=== PATIENT | female | born 1985 | race Caucasian/White ===

== ENCOUNTER → 2018-02-24 14:36 | Outpatient (CLI) | payer OTHER, SELFPAY ==
[2018-03-01 12:08] LABS: HPV Reflexed? NOT INDICATED
== END ==
PROVIDERS: Visit Provider Obstetrics & Gynecology
DX: Z12.4 Encounter for screening for malignant neoplasm of cervix (principal)
CPT/HCPCS: 88175; G0145

== ENCOUNTER → 2020-04-16 | Outpatient (CLI) | payer OTHER, SELFPAY ==
[2020-04-22 15:56] LABS: HPV Reflexed? NOT INDICATED
== END | disposition home or self-care (01) ==
LOC: LABSPEC 14:36
PROVIDERS: Visit Provider Obstetrics & Gynecology
DX: Z12.4 Encounter for screening for malignant neoplasm of cervix (principal)
CPT/HCPCS: 88175; G0145

== ENCOUNTER 2022-02-16 08:59 | Outpatient (CLI) | payer OTHER, SELFPAY ==
--- NOTE | 2022-02-16 09:08 | BI_ITS ---
MAMMOGRAPHY - BILATERAL DIAGNOSTIC REASON FOR EXAM: Female, 36 years old. rt lump PERTINENT HISTORY: Non-contributory. TECHNIQUE: Digital examination. Mediolateral oblique (MLO) and craniocaudad (CC) views of both breasts were obtained. CAD: CAD was performed on this study. COMPARISON: None. FINDINGS: Breast Composition: The breasts are extremely dense, which lowers the sensitivity of mammography. There are no dominant masses or suspicious calcifications. No other significant abnormalities are identified. BI/DIAG MAMM W/CAD, BILAT IMPRESSION: Stable bilateral diagnostic mammogram. Ultrasound of the palpable abnormality in the right breast will be obtained. ASSESSMENT CATEGORY: BIRADS Category 0: Incomplete. Need additional imaging evaluation. A letter regarding these results will be sent to the patient by the facility within 30 days. FOLLOW UP RECOMMENDATION: Ultrasound Recommended. (I) Approximately 10% of breast cancers are not detected by mammography. A normal mammogram should not delay biopsy of a clinically suspicious abnormality. Electronically Signed: Elder Díaz MD at 10:56 EDT ,
--- NOTE | 2022-02-16 10:10 | US_ITS ---
STUDY: ULTRASOUND BREAST - RIGHT REASON FOR EXAM: Female, 36 years old. Palpable mass TECHNIQUE: Axial and longitudinal images of the RIGHT breast were performed with a high resolution ultrasound transducer. # OF IMAGES: 27 COMPARISON: Diagnostic mammogram earlier today FINDINGS: RIGHT Breast: Heterogeneous background echotexture. Multiple longitudinal and transverse ultrasound images of the upper outer quadrant of the right breast fail to demonstrate a discrete solid or cystic mass. Within the axilla detail there is a normal-appearing 1 cm lymph node.: US/Breast Limited Unilateral IMPRESSION: Normal diagnostic mammogram right breast ultrasound. However, biopsy of any palpable abnormality should be performed if clinically indicated. ASSESSMENT CATEGORY: BIRADS Category 1: Negative. A letter regarding these results will be sent to the patient by the facility within 30 days. Electronically Signed: Elder Díaz MD at 11:12 EDT ,
== END 2022-02-16 23:59 | disposition home or self-care (01) ==
PROVIDERS: PCP Orthopaedic Surgery; Referring Provider Obstetrics & Gynecology; Visit Provider Obstetrics & Gynecology
DX: N60.11 Diffuse cystic mastopathy of right breast (principal); R92.2 Inconclusive mammogram
CPT/HCPCS: 76642; 77062; 77066; G0279

== ENCOUNTER → 2022-04-28 | Outpatient (CLI) | payer OTHER, SELFPAY ==
[2022-05-02 15:18] LABS: HPV Reflexed? NOT INDICATED
== END | disposition home or self-care (01) ==
LOC: LABSPEC 10:05
PROVIDERS: PCP Orthopaedic Surgery; Visit Provider Obstetrics & Gynecology
DX: Z12.4 Encounter for screening for malignant neoplasm of cervix (principal)
CPT/HCPCS: 88175; G0145

== ENCOUNTER → 2023-05-12 | Outpatient (CLI) | payer OTHER, SELFPAY ==
[2023-05-12 10:11] LABS: Absolute Lymphocyte Count 1.48 X10^3/uL (0.83-4.51); Absolute Neutrophil Count 2.9 X10^3/uL (2.0-7.7); Basophil# 0.04 X10^3/uL; Basophil% 0.8 % (0-1); Eosinophil# 0.08 X10^3/uL; Eosinophils% 1.7 % (0-5); Hematocrit 39.1 % (37-47); Hemoglobin 12.7 g/dL (12.0-15.0); Lymphocyte # 1.48 X10^3/ul (0.83-4.51); Lymphocyte % 30.8 % (19-41); Mean Corp Hgb Conc 32.5 g/dL (32-36); Mean Corpuscular Volume 92.4 fL (81-99); Mean Platelet Vol. 10.4 fl (6.2-12.0); Monocyte# 0.28 X10^3/uL; Monocyte% 5.8 % (0-10); NRBC Flagged by Analyzer 0 % (0-5); Neutrophil # 2.92 X10^3/uL (2.7-7.7); Neutrophil % 60.7 % (47-70); Platelet Count 193 K/mm3 (150-450); RBC Distribution Width CV 12.7 % (11.6-14.6); RBC Distribution Width SD 43.5 fl (35.1-43.9); Red Blood Count 4.23 M/mm3 (4.2-5.4); White Blood Count 4.8 K/mm3 (4.4-11.0)
== END | disposition home or self-care (01) ==
LOC: WOBLAB 09:50
PROVIDERS: PCP Orthopaedic Surgery; Visit Provider Nurse Practitioner Women's Health
DX: N93.9 Abnormal uterine and vaginal bleeding, unspecified (principal)
CPT/HCPCS: 36415; 82670; 83001; 83002; 84146; 84439; 84443; 85025

== ENCOUNTER → 2023-05-16 | Outpatient (CLI) | payer OTHER, SELFPAY ==
[2023-05-16 09:03] LABS: Estradiol 205.3 pg/mL; Follicle Stimulating Hormone 8.8 mIU/mL; Luteinizing Hormone 55.5 mIU/mL; Prolactin 19.9 ng/mL; T4 Free Direct 0.88 ng/dL (0.76-1.46); Thyroid Stim Hormone (TSH) 2.59 uIU/mL (0.358-3.74)
== END | disposition home or self-care (01) ==
LOC: WOBLAB 08:30
PROVIDERS: PCP Orthopaedic Surgery; Visit Provider Nurse Practitioner Women's Health
DX: N93.9 Abnormal uterine and vaginal bleeding, unspecified (principal)
CPT/HCPCS: 82670; 83001; 83002; 84146; 84439; 84443

== ENCOUNTER → 2025-07-15 | Outpatient (CLI) | payer OTHER, SELFPAY | END | disposition home or self-care (01) | LOC: LABSPEC 11:13 | PROVIDERS: PCP Orthopaedic Surgery; Referring Provider Nurse Practitioner Family; Visit Provider Nurse Practitioner Family | DX: Z12.4 Encounter for screening for malignant neoplasm of cervix (principal) | CPT/HCPCS: 88175; G0145 ==

== ENCOUNTER → 2025-08-15 | Outpatient (CLI) | payer OTHER, SELFPAY ==
--- NOTE | 2025-08-15 12:00 | BI_ITS ---
EXAM: SCRN MAMM (CAD)W/PEÑA BILAT DATE: 08/15/2025 CLINICAL HISTORY: F, Age 40 y/o , SCREENING TECHNIQUE: Procedure Code: [id number] Modality: MG Procedure: SCRN MAMM (CAD)W/PEÑA BILAT COMPARISON: Prior exam(s) were compared FINDINGS: TISSUE DENSITY: The breasts are extremely dense, which lowers the sensitivity of mammography. Bilateral Breast Mammographic Findings: No suspicious masses, calcifications or other abnormalities are identified. BI/SCRN MAMM (CAD)W/PEÑA BILAT IMPRESSION: No mammographic evidence of malignancy in either breast. OVERALL FINAL ASSESSMENT BI-RADS 1: NEGATIVE. RECOMMENDATION: Routine annual follow-up in 1 Year Additional Recommendation none A letter with findings and recommendations will be mailed to the patient. Reading Location: [id number]
--- NOTE | 2025-08-15 12:00 | BI_ITS ---
EXAM: SCRN MAMM (CAD)W/PEÑA BILAT DATE: 08/15/2025 CLINICAL HISTORY: F, Age 40 y/o , SCREENING TECHNIQUE: Procedure Code: [id number] Modality: MG Procedure: SCRN MAMM (CAD)W/PEÑA BILAT COMPARISON: Prior exam(s) were compared FINDINGS: TISSUE DENSITY: The breasts are extremely dense, which lowers the sensitivity of mammography. Bilateral Breast Mammographic Findings: No suspicious masses, calcifications or other abnormalities are identified. BI/SCRN MAMM (CAD)W/PEÑA BILAT IMPRESSION: No mammographic evidence of malignancy in either breast. OVERALL FINAL ASSESSMENT BI-RADS 1: NEGATIVE. RECOMMENDATION: Routine annual follow-up in 1 Year Additional Recommendation none A letter with findings and recommendations will be mailed to the patient. Reading Location: [id number]
--- OUTSIDE RECORDS SUMMARY | 2025-08-15 12:44 | XMS RPT_ITS | CCD ---
Author Organization [facility] Care Team Providers Care Administrative Processor Name Role Phone Vinod QUINTEROS, Tahir Sotelo Unavailable [phone] Spenser QUINTEROS, Dr. Fermin Perez Primary Care Provider Spenser QUINTEROS, Dr. Fermin Perez Referring Provider [phone] Anastasia HOLMAN-CLarissa Attending Provider Spenser QUINTEROS, Dr. Fermin Perez Primary Care Physician Anastasia HOLMAN-Larissa Peter Attending Physician Anastasia HOLMAN-Larissa Peter Referring Provider Larissa Oconnor Attending Unavailable Larissa Oconnor Referring Unavailable Fermin Dueñas Primary Care Unavailable Fermin Dueñas Primary Care Unavailable Fermin Dueñas Referring Unavailable Larissa Oconnor Attending Unavailable Allergies Allergy Classification Reported Allergen(s) Allergy Type Date of Onset Reaction(s) Facility (1 source) [facility]; Translations: [ANIMALS] allergy to substance 9 [facility] Work Phone: (4 sources) Latex; Translations: [LATEX] allergy to substance 9 [facility] Work Phone: (1 source) Penicillin Drug Allergy 9 [facility] Work Phone: (2 sources) Penicillins Allergy to substance 5 [facility] (1 source) Penicillins Drug allergy (disorder) 5 [facility] Medications Current Medications Medication Drug Class(es) Dates Sig (Normalized) Sig (Original) cholecalciferol 0.125 mg oral capsule (2 sources) Vitamin D Start: 04-30-2025 take 1 capsule by mouth once daily ferrous sulfate 325 mg oral tablet (2 sources) Start: 04-30-2025 take 1 tablet by mouth once daily Magnesium (2 sources) Start: 04-30-2025 take 1 tablet by mouth once daily Start: 04-30-2025 take 1 tablet by irving th once daily Magnesium 250 mg tablet Active 250 mg PO daily April 30, 2025 12:00am Multivitamin tablet (2 sources) Start: 04-30-2025 Start: 04-30-2025 Multivitamin t ablet Active 1 {tbl} PO EVERY MORNING April 30, 2025 12:00am zinc gluconate 50 mg oral ta blet (2 sources) Start: 04-30-2025 take 1 tablet by irving th once daily Problems Active Problems Problem Classification Problem Date Documented Da te Episodic/Chronic Melanomas of skin (1 source) Malignant melanoma of skin of back; Translations: [Malignant melanoma of other part of trunk] Onset: 08-20-2019 08-20-2019 Chronic Other screening for suspected conditions (not mental disorders or infectious disease) (2 sources) Encounter for screening for malignant neoplasm of cervix; Translations: [Encounter for other screening for malignant neoplasm of breast] Onset: 07-15-2025 Episodic Past or Other Problems Problem Classification Problem Date Documented Da te Episodic/Chronic Unclassified (1 source) Problem Results Test Name Value Interpretation Reference Range Facility PAP IG w/Reflex HR HPV Aptim aon 07-18-2025 ADEQ Comment Normal . [facility] Comment on above: Order Comment: Speci men Comment: [id number] Specimen Comment: No. of containers..01 ThinPrep Vial Result Comment: Sati sfactory for evaluation. Endocervical and/or squamous metaplastic cells (endocervical component) are present. Performed By: #### L 7400.0357 #### [facility] [address] [place], [address] COMM . Normal . [facility] Comment on above: Order Comment: Speci men Comment: [id number] Specimen Comment: No. of containers..01 ThinPrep Vial Performed By: #### L 7400.0357 #### [facility] [address] [place], [address] COMMENT Comment Normal . [facility] Comment on above: Order Comment: Speci men Comment: [id number] Specimen Comment: No. of containers..01 ThinPrep Vial Result Comment: This liquid based ThinPrep(R) pap test was screened with the use of an image guided system. Performed By: #### L 7400.0357 #### [facility] [address] [place], [address] DIAG Comment Normal . [facility] Comment on above: Order Comment: Speci men Comment: [id number] Specimen Comment: No. of containers..01 ThinPrep Vial Result Comment: NEGA TIVE FOR INTRAEPITHELIAL LESION OR MALIGNANCY. Performed By: #### L 7400.0357 #### [facility] [address] [place], [address] HPV RFLX Comment Normal . [facility] Comment on above: Order Comment: Speci men Comment: [id number] Specimen Comment: No. of containers..01 ThinPrep Vial Result Comment: The HPV DNA reflex criteria were not met with this specimen result therefore, no HPV testing was performed. Performed at: [address] [id number] Outreach Team Member: Samantha James MD, Phone: [phone] Performed By: #### L 7400.0357 #### [facility] [address] [place], [address] PAPSMR Comment Normal . [facility] Comment on above: Order Comment: Speci men Comment: [id number] Specimen Comment: No. of containers..01 ThinPrep Vial Result Comment: The Pap smear is a screening test designed to aid in the detection of premalignant and malignant conditions of the uterine cervix. It is not a diagnostic procedure and should not be used as the sole means of detecting cervical cancer. Both false-positive and false-negative reports do occur. Performed By: #### L 7400.0357 #### [facility] [address] [place], [place], [address] PERFORM Comment Normal . [facility] Comment on above: Order Comment: Speci men Comment: [id number] Specimen Comment: No. of containers..01 ThinPrep Vial Result Comment: Sarita Frye Project Product Manager (ASCP) Performed By: #### L 7400.0357 #### [facility] [address] [place], [address] Cervical or vagninal specime n microscopic examination by cytology stain (reported asOrdered By: Larissa Oconnor on 07-15-2025 Cytology report Cyto stain Doc (Cvx/Vag) Comment . [facility] Comment on above: The Pap smear is a s creening test designed to aid in thedetection of premalignant and malignant conditions of theuterine cervix. It is not a diagnostic procedure andshould not be used as the sole means of detecting cervicalcancer. Both false-positive and false-negative reports dooccur. Laboratory - CytologyOrdered By: Larissa Oconnor on 07-15-2025 Project Product Manager Cyto stain Nom (Cvx/Vag) [ID] Comment . [facility] Comment on above: Les calvert Project Product Manager (ASCP) Laboratory - Miscellaneous t estsOrdered By: Lraissa Oconnor on 07-15-2025 Service comment (Unsp spec) [Interp] . . [facility] No Panel InformationOrdered By: Larissa Oconnor on 07-15-2025 Pap Smear Specimen Adequacy Comment . [facility] Comment on above: Satisfactory for richard luation. Endocervical and/or squamous metaplasticcells (endocervical component) are present. Developer [employer] Office Visit Reporton 07-15-2025 Developer [employer] Office Visit Report [facility]'[address], [address] [place] [address] OFFICE VISIT Date of Service: 07/15/25 MR#: [id number] Acct: [id number] Name: KAYLEY WESTON Rep #: [id number] : 1985 Provider: SAQIB Ramirez Age/Sex: 40/F Location: [facility] Status: Signed Intake Vital Signs 07/15/25 08:19 Height 5 ft 4 in Weight: 144 lb BMI 24.7 BP 105/69 Intake Visit Reasons: Annual (ADON) Area Field Person Required: No Is patient in pain?: No Allergies Penicillins Allergy (Intermediate, Verified 07/15/25 08:20) Rash latex Allergy (Mild, Verified 07/15/25 08:20) Rash Medications ???Medication ???Instructions ???Recorded ???Confirmed ???Type cholecalciferol (vitamin D3) 125 125 mcg PO QDAY 04/30/25 07/15/25 History mcg (5,000 unit) capsule ferrous sulfate 325 mg (65 mg 325 mg PO QDAY 04/30/25 07/15/25 H istory iron) tablet (Feosol) magnesium 250 mg tablet 250 mg PO QDAY 04/30/25 07/15/25 H istory multivitamin 1 tab PO QAM 04/30/25 07/15/25 His tory zinc gluconate 50 mg tablet 50 mg PO QDAY 04/30/25 07/15/25 Hi story Is last menstrual period known: Yes Last Menstrual Period: 06/22/25 Post menopausal: No Patient : No : No Do you think of yourself as: straight/heterosexual Current gender identity: female Control Method: tubal PFSH Medical History (Updated 04/30/25 @ 13:28 by Geri Carranza) Melanoma Surgical History (Updated 07/15/25 @ 08:31 by SAQIB Modi) Tubal ligation status H/O lymph node biopsy H/O melanoma excision H/O section Family History Grandfather Heart disease Grandfather CVA (cerebral vascular accident) Father Lung cancer Brother Alcoholism Mental disorder Social History (Updated 04/30/25 @ 13:30 by Geri Carranza) adopted: No household members: family housing: house number of children: 2 current occupational status: unemployed pets and animals: No history of recent travel: Yes ([place]) out of state: Yes out of country: No sexually active: Yes Smoking Status: Never smoker alcohol intake: never substance use type: does not use well-balanced diet: daily or most days caffeine: No eating out: 1-3 times/week during the past year weight has: remained stable what type of physical activity do you participate in: walking and running frequency: daily arlen/faith: Shinto seatbelt use: always do you feel safe at home: Yes additional social history: - Justin History 2 Elective abortions Hx Para 2 Spontaneous abortions Hx # Term Pregnancies Ectopic pregnancies Hx # Pregnancies Multiple births # of living children 2 Past Pregnancies Del. Date Name GA/Weeks Outcome Route Bth Weight Gen Labor Lgth Anesthesia Del Locatn Provider FOB Unknown Jung 39 live - full term [facility] Unknown Richard 38 live - full term [place] [facility] HPI Encounter for routine gynecological examination Details: KAYLEY WESTON is a 40 year old who presents for annual exam. She reports no issues or concerns today. She is here to establish care. Last PAP: 2021; normal; no HPV ran History of abnormal PAP: none Last mammogram: 2021; benign lymph node. History of abnormal mammogram: none Colon cancer screening: none Other preventative health care screenings: Dr. Fermin Dueñas Female Reproductive History Last Menstrual Period: 06/22/25 Cycle Length: 21-35 Bleeding Duration: 5 Questions: metrorrhagia: No, sexually active: Yes (tubal), dyspareunia: No and PCB: No ROS Const Constitutional: Denies chills, fatigue, fever(s), headache(s) or weight loss Eyes Eyes: Denies change in vision ENT ENT: Denies dizziness Cardio Card: Denies chest pain at rest or palpitations Resp Resp: Denies cough or dyspnea GI GI: Denies abdominal pain, constipation or nausea : Denies difficulty voiding, dysuria, hematuria, nipple discharge, pelvic pain, prolapse symptoms, urinary incontinence, vaginal discharge, vaginal dryness, vaginal odor or vaginal pruritus Skin Skin/Breast: Denies alopecia, rash, breast mass, breast pain, breast skin changes or nipple discharge Neuro Neuro: Denies dizziness Psych Psych: Denies anxiety or depression Endo Endo: Denies cold intolerance, excessive sweating or heat intolerance Exam Const General: cooperative, healthy appearing, comfortable, no acute distress, well groomed and well hydrated Nutritional Appearance: well nourished Orientation: alert, awake and oriented x3 HENMT Head: normal to inspection and normocephalic Ears: hearing grossly normal bilaterally and external ears normal Nose: external nose normal (more content not included)... Normal [facility] - Chemistry and C hemistry - challengeOrdered By: Poppy Barragan on 05-16-2023 Free T4 [Mass/Vol] 0.88 ng/dL 0.76-1.46 [facility] No Panel InformationOrdered By: Poppy Barragan on 05-16-2023 Follicle Stimulating Hormone 8.8 mIU/mL [facility] Comment on above: NORMAL REFERENCE RAN GES FEMALE FOLLICULAR 2.3 - 12.6 mIU/mL MID-CYCLE PEAK 5.2 - 17.5 mIU/mL LUTEAL 1.7 - 12.9 mIU/mL POST-MENOPAUSAL ON MHT 5.9 - 72.8 mIU/mL NOT ON MHT 12.7 - 132.2 mlU/mL MALE 0.7 - 10.8 mIU/mL Luteinizing Hormone 55.5 mIU/mL [facility] Comment on above: NORMAL REFERENCE RAN GES FEMALE FOLLICULAR 1.9 - 26.2 mIU/mL MID-CYCLE PEAK 22.8 - 76.1 mIU/mL LUTEAL 0.6 - 16.6 mIU/mL POST-MENOPAUSAL ON MHT 1.1 - 52.4 mIU/mL NOT ON MHT 8.6 - 61.8 mIU/mL MALE 1.2 - 10.6 mIU/mL Thyroid Stimulating Hormone (TSH) 2.59 uIU/mL 0.358-3.74 [facility] Serum or plasma estradiol (E 2) measurement (mass/volume)Ordered By: Poppy Barragan on 05-16-2023 E2 [Mass/Vol] 205.3 pg/mL [facility] Comment on above: NORMAL REFERENCE RAN GES FEMALE FOLLICULAR 21.4 - 164.8 pg/mL MID-CYCLE PEAK 49.9 - 367.2 pg/mL LUTEAL 40.2 - 259.0 pg/mL POST-MENOPAUSAL ON MHT <11.0 - 462.1 pg/mL NOT ON MHT <11.0 - 58.3 pg/mL MALE <11.0 - 52.5 pg/mL NOTE:[employer] HAS CONFIRMED THE DRUG FULVETRANT (FASLODEX) MAY CAUSE FALSELY ELEVATED ESTRADIOL RESULTS WHEN USING THIS TEST METHOD. IF PATIENT IS TAKING FULVESTRANT AN ALTERNATIVE METHOD SHOULD BE USED TO DETERMINE ESTRADIOL CONCENTRATION. Serum or plasma prolactin me asurement (mass/volume)Ordered By: Poppy Barragan on 05-16-2023 Prolactin [Mass/Vol] 19.9 ng/mL [facility] Comment on above: NORMAL REFERENCE RAN GES FEMALE NON- 2.2 - 30.3 ng/mL 8.1 - 347.6 ng/mL POST-MENOPAUSAL 0.7 - 31.5 ng/mL MALE 2.5 - 17.4 ng/mL Absolute lymphocyte countOrd ered By: Poppy Barragan on 05-12-2023 Lymphocytes Auto (Unsp spec) [#/Vol] 1.48 10*3/uL 0.83-4.51 [facility] Basophil percentageOrdered B y: Poppy Barragan on 05-12-2023 Basophils/100 WBC (Bld) 0.8 % 0-1 [facility] Eosinophils/100 WBC (Bld) 1.7 % 0-5 [facility] Neutrophils (Bld) [#/Vol] 2.9 10*3/uL 2.0-7.7 [facility] Neutrophils/100 WBC (Bld) 60.7 % 47-70 [facility] WBC (Bld) [#/Vol] 4.8 10*3/uL 4.4-11.0 [facility] Blood erythrocytes count (nu mber/volume)Ordered By: Poppy Barragan on 05-12-2023 RBC (Bld) [#/Vol] 4.23 10*6/uL 4.2-5.4 [facility] Blood hemoglobin measurement (mass/volume)Ordered By: Poppy Barragan on 05-12-2023 Hemoglobin (Bld) [Mass/Vol] 12.7 g/dL 12.0-15.0 [facility] Blood lymphocytes/100 leukoc ytesOrdered By: Poppy Barragan on 05-12-2023 Lymphocytes/100 WBC (Bld) 30.8 % 19-41 [facility] Blood monocytes/100 leukocyt esOrdered By: Poppy Barragan on 05-12-2023 Monocytes/100 WBC (Bld) 5.8 % 0-10 [facility] Blood platelet mean volumeOr dered By: Poppy Barragan on 05-12-2023 Platelet mean volume (Bld) [Entitic vol] 10.4 fL 6.2-12.0 [facility] Determination of erythrocyte mean corpuscular volume (MCV)Ordered By: Poppy Barragan on 05-12-2023 MCV (RBC) [Entitic vol] 92.4 fL 81-99 [facility] Hematocrit Auto (Bld) [Volum e fraction]Ordered By: Poppy Barragan on 05-12-2023 Hematocrit (Bld) [Volume fraction] 39.1 % 37-47 [facility] - Hematology and Cell countsOrdered By: Poppy Barragan on 05-12-2023 Erythrocyte distribution width (RBC) [Entitic vol] 43.5 fL 35.1-43.9 [facility] Erythrocyte distribution width (RBC) [Ratio] 12.7 % 11.6-14.6 [facility] Immature granulocytes/100 WBC (Bld) 0.200 % 0.0-0.9 [facility] Comment on above: IG% - Immature Granu locytes (promyelocytes, myelocytes and metamyelocytes) > 1% indicates that a LEFT SHIFT is Present. MCH (RBC) [Entitic mass] 30.0 pg 27.0-32.0 [facility] Nucleated RBC/100 WBC (Bld) [Ratio] 0 % 0-5 [facility] MCHC Auto (RBC) [Mass/Vol]Or dered By: Poppy Barragan on 05-12-2023 MCHC (RBC) [Mass/Vol] 32.5 g/dL 32-36 [facility] Platelets bldOrdered By: Teresa Barragan on 05-12-2023 Platelets (Bld) [#/Vol] 193 10*3/uL 150-450 [facility] [place] LYMPHOSCINTIGRAPHYon 11-0 Lymphocytes (Bld) [#/Vol] ORIGINAL Lymphoscintigraphy, melanoma CLINICAL STATEMENT: MELANOMA LEFT UPPER BACK The procedure was explained to the patient. The risks of the procedure were discussed with the patient. The patient verbalized understanding and agreed to the procedure. 1 mCi of Tc-99m Lymphoseek was injected in 4 divided aliquots. The injection time was at 8:30 a.m. Subsequently obtained dynamic and static images show multiple bilateral axillary lymph nodes, greater on the LEFT side. The sentinel lymph node on each side was marked under the gamma camera. Summary: Successful sentinel lymph node visualization in the bilateral axillae. The sentinel node on each side was marked to aid surgery. I have personally reviewed the images of this examination and agree with the resident's findings and interpretation. Interpreted By: Miguel Angel Andrew DO Preliminary Report By: Williams Peña MD Electronically Signed By: Miguel Angel Andrew DO Dictated Date: 09/05/2019 10:20:28 AM Prelim Date: 09/05/2019 10:20:42 AM Sign Date: 09/05/2019 10:25:16 AM Ordering Provider:Deepak Brock [facility] ([place]) Clinical Summary: HMSPatient IDon 08-20-2019 [facility] Work Phone: Clinical Lists Update: Prelo ad Extendedon 08-17-2019 Tobacco smoking status NHIS Tobacco smoking status NHIS [facility] Work Phone: Clinical Summary: Scanned Hi story Summaryon 08-17-2019 Data entered by patient exercise frequency 5 days per week [facility] Work Phone: Data entered by patient exercise type walking, jogging [facility] Work Phone: data entered by patient, alcohol (ethanol or ETOH) use No [facility] Work Phone: Data entered by patient, allergy list PenicillinAnimalsLatex Cry stal [facility] Work Phone: data entered by patient, drug (of abuse) use No [facility] Work Phone: data entered by patient, Employer Name unemployed [facility] Work Phone: data entered by patient, exercise history Yes [facility] Work Phone: Data entered by patient, history of past surgeries section [facility] Work Phone: data entered by patient, past medical history AnemiaMelanoma [facility] Work Phone: data entered by patient, social history, current smoker never smoker [facility] Work Phone: data entered by patient, social history, marital status [facility] Work Phone: father of patient is alive or Alive [facility] Work Phone: Housing Type: apartment, house, long term, trailer, none house [facility] Work Phone: housing unit size (asthma environmental history, housing) (from single family to don't know) [address] [facility] Work Phone: medical history of patient's brother(s) Alcoholism [facility] Work Phone: mother of patient is alive or Alive [facility] Work Phone: Number of dependent children Yes [facility] Work Phone: Vital Signs Date Time Vital Sign Value Performing Clinician Facility 07-15-2025 08:19-0400 Body height 162.[address] Fermin Dueñas MD Work Phone: [facility] 07-15-2025 08:19-0400 Body mass index (BMI) [Ratio] 24.7 kg/m2 Dr. Fermin Dueñas MD Work Phone: [facility] 07-15-2025 08:19-0400 Body weight 65.[address] Fermin Dueñas MD Work Phone: [facility] 07-15-2025 08:19-0400 Diastolic blood pressure 69 mm[Hg] Dr. Fermin Dueñas MD Work Phone: [facility] 07-15-2025 08:19-0400 Systolic blood pressure 105 mm[Hg] Dr. Fermin Dueñas MD Work Phone: [facility] NEGATED: Highlighted [id number] 09:07-0400 BMI (Body Mass Index) 23.72 kg/m2 Paty Ordoñez RN [facility] Work Phone: NEGATED: Highlighted [id number] 09:07-0400 Body weight 64.41 kg Paty Ordoñez RN [facility] Work Phone: NEGATED: Highlighted [id number] 09:07-0400 Body weight 65 kg Paty Ordoñez RN [facility] Work Phone: NEGATED: Highlighted [id number] 09:07-0400 BP Diastolic 72 mm[Hg] Paty Ordoñez RN [facility] Work Phone: NEGATED: Highlighted [id number] 09:07-0400 BP Systolic 111 mm[Hg] Paty Ordoñez RN [facility] Work Phone: NEGATED: Highlighted [id number] 09:07-0400 Height 165.1 cm Paty Ordoñez RN [facility] Work Phone: NEGATED: Highlighted [id number] 09:07-0400 Height 165 cm Paty Ordoñez RN [facility] Work Phone: NEGATED: Highlighted [id number] 09:07-0400 Pulse (Heart Rate) 68 /min Paty Ordoñez RN [facility] Work Phone: Encounters Encounter Date Encounter Type Care Provider Facility Start: 07-15-2025 End: 07-15-[address] Fermin Dueñas MD Work Phone: -Laboratory Specimen Start: 07-15-2025 End: 07-15-2025 Patient encounter procedure Larissa Oconnor CONSULTING APPLICATION ENGINEER-C -Laboratory Specimen Work Phone: Start: 07-15-2025 Encounter for gynecological examination (general) (routine) without abnormal findings Larissa Oconnor [facility] Start: 07-15-2025 End: 07-15-2025 Patient encounter procedure Larissa Oconnor CONSULTING APPLICATION ENGINEER-C -[facility] @ Start: 07-15-2025 End: 07-15-[address] Fermin Dueñas MD Work Phone: [facility] Start: 07-15-2025 End: 07-15-2025 ambulatory Larissa Oconnor Facility:[facility] Start: 05-16-2023 End: 05-16-2023 ambulatory [facility] Work Phone: Start: 05-16-2023 End: 05-16-2023 Patient encounter procedure [facility], [place] explosives engineer Off Start: 05-12-2023 End: 05-12-2023 ambulatory [facility] Work Phone: Start: 05-12-2023 End: 05-12-2023 Patient encounter procedure [facility] [place] explosives engineer Off Start: 02-16-2022 End: 02-16-2022 Patient encounter procedure [facility] Start: 08-20-2019 End: 08-20-2019 Patient encounter procedure Tahir Brock MD Work Phone: [facility] Work Phone: Procedures Date Procedure Procedure Detail Performing Clinician Start: 07-15-2025 Liquid based cervica l cytology screening Dr. Fermin Dueñas MD Work Phone: Comment on above: NEGATIVE FOR INTRAEP ITHELIAL LESION OR MALIGNANCY. This liquid based Th inPrep(R) pap test was screened withthe use of an image guided system. The HPV DNA reflex c butch were not met with this specimenresult therefore, no HPV testing was performed.Performed at: [address] [id number] Director: Samantha James MD, Phone: [phone] Start: 02-16-2022 Ultrasonography of breast Start: 02-16-2022 Bilateral mammography Start: 08-20-2019 End: 08-20-2019 Blood pressure within normal parameters - no follow-up required A Deepak Brock MD Work Phone: Start: 08-20-2019 End: 08-20-2019 BMI documented within normal parameters - no follow-up plan is required A Deepak Brock MD Work Phone: Start: 08-20-2019 End: 08-20-2019 Documentation of current medications Tahir Brock MD Work Phone: Start: 08-20-2019 End: 08-20-2019 Pain assessment not documented - reason not given A Deepak Brock MD Work Phone: Start: 08-20-2019 End: 08-20-2019 Tobacco non-user Tahir Brock MD Work Phone: Start: 08-17-2019 End: 08-17-2019 Documentation of current medications Paty Ordoñez RN NEGATED: Highlighted rowStart: 08-20-2019 End: 08-20-2019 Documentation of current medications Paty Ordoñez RN Plan of Treatment Date Care Activity Detail Author Start: 08-15-2025 MG Breast - bilatera l Screening [facility] Start: 08-20-2019 End: 08-20-2019 Appointment Appointment [facility] Work Phone: MG Breast - bilatera l Screening [facility] Microscopic observat ion [Identifier] in Cervix by Cyto stain.thin prep [facility] Payers Date Payer Category Payer Self-pay [id number] 2009 Unknown [id number] 2009 Unknown [id number] Unknown [id number] Unknown [id number] Social History Date Type Detail Facility Start: 08-20-2019 End: 08-20-2019 Assertion Unknown if ever smoked [facility] Work Phone: Start: 1985 Sex Assigned At Female [facility] Start: 07-15-2025 Tobacco smoking status NHIS Never smoked tobacco (finding) [facility] Gender Identity Identifies as fe male gender (finding) [facility] Sexual Orientation Heterosexual (finding) [facility] Progress note 07-15-2025 Note Date & Type Note Facility 07-15-2025 Progress note [facility] Evaluation note Note Date & Type Note Facility Evaluation note No assessment information availa ble [facility] Work Phone: Progress note Note Date & Type Note Facility Progress note Note Date/Time July 15, 2025 8:49am [facility] [address], [address] [place] [address] OFFICE VISIT Date of Service: 07/15/25 MR#: [id number] Acct: [id number] Name: KAYLEY WESTON Rep #: [id number] : 1985 Provider: SAQIB Oconnor Age/Sex: 40/F Location: [facility] Status: Signed Intake Vital Signs 07/15/25 08:19 Height 5 ft 4 in Weight: 144 lb BMI 24.7 BP 105/69 Intake Visit Reasons: Annual (ADON) Area Field Person Required: No Is patient in pain?: No Allergies Penicillins Allergy (Intermediate, Verified 07/15/25 08:20) Rash latex Allergy (Mild, Verified 07/15/25 08:20) Rash Medications ?Medication ?Instructions ?Recorded ?Confirmed ?Type cholecalciferol (vitamin D3) 125 125 mcg PO QDAY 04/3007/15/25 History mcg (5,000 unit) capsule ferrous sulfate 325 mg (65 mg 325 mg PO QDAY 04/30/25 07/15/25 History iron) tablet (Feosol) magnesium 250 mg tablet 250 mg PO QDAY 04/30/2507/01 History multivitamin 1 tab PO QAM 04/30/25 History zinc gluconate 50 mg tablet 50 mg PO QDAY 04/30/25 History Is last menstrual period known: Yes Last Menstrual Period: 06/22/25 Post menopausal: No Patient : No : No Do you think of yourself as: straight/heterosexual Current gender identity: female Control Method: tubal PFSH Medical History (Updated 04/30/25 @ 13:28 by Geri Carranza) Melanoma Surgical History (Updated 07/15/25 @ 08:31 by SAQIB Modi) Tubal ligation status H/O lymph node biopsy H/O melanoma excision H/O section Family History Grandfather Heart disease Grandfather CVA (cerebral vascular accident) Father Lung cancer Brother Alcoholism Mental disorder Social History (Updated 04/30/25 @ 13:30 by Geri Carranaz) adopted: No household members: family housing: house number of children: 2 current occupational status: unemployed pets and animals: No history of recent travel: Yes ([place]) out of state: Yes out of country: No sexually active: Yes Smoking Status: Never smoker alcohol intake: never substance use type: does not use well-balanced diet: daily or most days caffeine: No eating out: 1-3 times/week during the past year weight has: remained stable what type of physical activity do you participate in: walking and running frequency: daily arlen/faith: Shinto seatbelt use: always do you feel safe at home: Yes additional social history: - Justin History 2 Elective abortions Hx Para 2 Spontaneous abortions Hx # Term Pregnancies Ectopic pregnancies Hx # Pregnancies Multiple births # of living children 2 Past Pregnancies Del. Date Name GA/Weeks Outcome Route Bth Weight Infant Gen Labor Lgth Anesthesia Del Locatn Provider FOB Unknown Jung 39 live - full term [facility] Unknown Richard 38 live - full term [facility] HPI Encounter for routine gynecological examination Details: KAYLEY WESTON is a 40 year old who presents for annual exam. She reports no issues or concerns today. She is here to establish care. Last PAP: 2021; normal; no HPV ran History of abnormal PAP: none Last mammogram: 2021; benign lymph node. History of abnormal mammogram: none Colon cancer screening: none Other preventative health care screenings: Dr. Fermin Dueñas Female Reproductive History Last Menstrual Period: 06/22/25 Cycle Length: 21-35 Bleeding Duration: 5 Questions: metrorrhagia: No, sexually active: Yes (tubal), dyspareunia: No and PCB: No ROS Const Constitutional: Denies chills, fatigue, fever(s), headache(s) or weight loss Eyes Eyes: Denies change in vision ENT ENT: Denies dizziness Cardio Card: Denies chest pain at rest or palpitations Resp Resp: Denies cough or dyspnea GI GI: Denies abdominal pain, constipation or nausea : Denies difficulty voiding, dysuria, hematuria, nipple discharge, pelvic pain, prolapse symptoms, urinary incontinence, vaginal discharge, vaginal dryness, vaginal odor or vaginal pruritus Skin Skin/Breast: Denies alopecia, rash, breast mass, breast pain, breast skin changes or nipple discharge Neuro Neuro: Denies dizziness Psych Psych: Denies anxiety or depression Endo Endo: Denies cold intolerance, excessive sweating or heat intolerance Exam Const General: cooperative, healthy appearing, comfortable, no acute distress, well groomed and well hydrated Nutritional Appearance: well nourished Orientation: alert, awake and oriented x3 HENMT Head: normal to inspection and normocephalic Ears: hearing grossly normal bilaterally and external ears normal Nose: external nose normal Face and sinus: normal facial exam Eyes General: appearance normal, both eyes and all related structures Neck Neck: normal visual inspection, full ROM and no lymphadenopathy Thyroid: thyroid normal Chest Chest palpation & inspection: normal inspection of the chest Breast inspection: normal inspection of the breasts and normal inspection of theaxillae Breast palpation: normal palpation of the breasts, normal palpation of the axillae and no axillary lymphadenopathy Resp Effort & Inspection: normal respiratory effort, able to speak in complete sentences and symmetric chest movement GI Inspection: normal to inspection Palpation: soft and no hepatosplenomegaly General: bladder normal to palpation External Female Exam: normal external appearance and normal appearance of the urethra Urethra: normal appearance of the urethra Speculum Exam - Vagina: normal appearance of the vagina, normal vaginal discharge, no lesions and nontender Speculum Exam - Cervix: normal appearance of the cervix, no lesions and no masses Bimanual Exam- Vagina & Uterus: normal bimanual exam, uterine size normal, bladder normal to palpation, normal palpation and non-tender Bimanual Exam- Adnexa, other: normal adnexae, no masses, normal and non-tender Pelvic Support: normal Skin General: no rashes or lesions noted Neuro General: patient alert, patient awake, patient oriented x3 and moves all extremities Psych Appearance: grossly normal Mental Status: mental status grossly normal Affect: normal affect Speech and Movement: speech and movement normal Attitude: cooperative Coding Level of Care Code New Pt Off vis,new,prev 40-64yrs Patient Type New Diagnoses Encounter for routine gynecological examination Z01.419 Assessment and Plan Assessment and Plan (1) Encounter for routine gynecological examination: Plan: Breast and pelvic exam complete. PAP due: completed today Mammogram due: orders placed to obtain Advised self breast exams monthly. Contraception: tubal Advised incorporating healthy dietary choices such as increase in lean meats, fruits/vegetables, less processed food/sat fat/trans fats. Increase exercise to 30 minutes per day/5 days a week. This can include both weight bearing exercisesand/or brisk walking. Follow up with PCP for further preventative health screenings. 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 Call office sooner with questions or concerns. Orders: Orders SCRN MAMM (CAD)W/PEÑA BILAT Today Z12.39 - Encounter for other screening for malignant neoplasm of breast PAP IG w/Reflex HR HPV Aptima Today Z12.4 - Encounter for screening for malignant neoplasm of cervix 07/15/25 9989 <Electronically signed by Larissa CERRATO> Date _ Larissa CERRATO Cosigner Signature: Date (if applicable) CC: ~ [email or web address] Work Phone: Reason for referral (narrative) Note Date & Type Note Facility Reason for referral (narrative) No reason for referral information available [facility] Work Phone: Summary Purpose Family History No Family History Records Found Relationship Condition Age at Onset Recorded Date/T blaise grandfather Cardiac disease Unknown grandfather Cerebrovascular accident (CVA) Unknown father Malignant neoplasm of lung Unknown brother Alcoholism Unknown Mental disorder Unknown Advance Directives No Advanced Directives Records FoundThere may be information available, but it has not been provided by the sender.No Advanced Directives Records Found Chief Complaint Chief Complaint Description Start Date melanoma left upper back Preliminary chief co mplaint data, not yet signed by the author as of Instructions Instruction Description Start Date Completed Assessments There may be information available, but it has not been provided by the sender. Review of System There may be information available, but it has not been provided by the sender. History of Present Illness There may be information available, but it has not been provided by the sender. Chief Complaint and Reason for Visit Chief Complaint Diffuse cystic masto kari of unspecified breast Chief Complaint Admit Date Annual (ADON) July 15, 2025 8:03am Additional Source Comments INFORMATION SOURCE (unrecogn ized section and content) DATE CREATED AUTHOR 09/06/2019 [facility] ([place]) DATE CREATED AUTHOR AUTHOR'S ORGANIZ ATION 08/03/2025 [facility] Reason for Visit (unrecogniz ed section and content) Reason For Visit Description New - 1st visit with practice Preliminary reason f or visit data, not yet signed by the author as of melanoma left upper back Goals (unrecognized section and content) Goals may be documented in a n alternate sectionGoals may be documented in an alternate sectionGoals may be documented in an alternate sectionGoals may be documented in an alternate sectionGoals may be documented in an alternate section Care Teams (unrecognized sec tion and content) Team Status: Active Member Role Status Dates Dr. Fermin Dueñas MD Primary Care Provider Active Team Status: Inactive Member Role Status Dates Dr. Fermin Dueñas MD Primary Care Provider Active SAQIB Rosenberg Attending Provider Active Team Status: Active Member Role Status Dates Dr. Fermin Dueñas MD Primary Care Provider Active Poppy Haury , CONSULTING APPLICATION ENGINEER-C Attending Provider Active Team Status: Active Member Role/Relationship Status Dates Dr. Fermin Dueñas MD Primary Care Provider Active Team Status: Inactive Member Role/Relationship Status Dates Dr. Fermin Dueñas MD Primary Care Provider Active Start: July 15, 2025 End: July 15, 2025 Dr. Fermin Dueñas MD Referring Provider Active Start: July 15, 2025 End: July 15, 2025 SAQIB Modi Attending Provider Active Start: July 15, 2025 End: July 15, 2025 Team Status: Active Member Role/Relationship Status Dates Dr. Fermin Dueñas MD Primary care physician Active Team Status: Inactive Member Role/Relationship Status Dates Dr. Fermin Dueñas MD Primary care physician Active Start: July 15, 2025 End: July 15, 2025 Dr. Fermin Dueñas MD Referring Provider Active Start: July 15, 2025 End: July 15, 2025 SAQIB Modi Attending physician Active Start: July 15, 2025 End: July 15, 2025 Team Status: Inactive Member Role/Relationship Status Dates Dr. Fermin Dueñas MD Primary care physician Active Start: July 15, 2025 End: July 15, 2025 SAQIB Modi Attending physician Active Start: July 15, 2025 End: July 15, 2025 SAQIB Modi Referring Provider Active Start: July 15, 2025 End: July 15, 2025 FOR RECORDS PERTAINING TO PATIENTS WHO ARE OR HAVE BEEN ENROLLED IN A CHEMICAL DEPENDENCY/SUBSTANCEABUSE PROGRAM, SOME INFORMATION MAY BE OMITTED. This clinical summary was aggregated from multiple sources. Caution should be exercised in using it in the provision of clinical care. This summary normalizes information from multiple sources, and as a consequence, information in this document may materially change the coding, format and clinical context of patient data. In addition, data may be omitted in some cases. CLINICAL DECISIONS SHOULD BE BASED ON THE PRIMARY CLINICAL RECORDS. [facility] [employer] [facility]. provides no warranty or guarantee of the accuracy or completeness of information in this document.
--- OUTSIDE RECORDS SUMMARY | 2025-08-15 12:44 | XMS RPT_ITS | CCD ---
Author Organization [facility] Care Team Providers Care [employer] Rep[employer]r Name Role Phone Vinod QUINTEROS, Tahir Sotelo Unavailable [phone] Spenser QUINTEROS, Dr. Fermin Perez Primary Care Provider Spenser QUINTEROS, Dr. Fermin Perez Referring Provider [phone] Anastasia HOLMAN-CLarissa Attending Provider Spenser QUINTEROS, Dr. Fermin Perez Primary Care Physician Anastasia HOLMAN-Larissa Peter Attending Physician Anastasia HOLMAN-Larissa ePter Referring Provider Larissa Oconnor Attending Unavailable Larissa Oconnor Referring Unavailable Fermin Dueñas Primary Care Unavailable Fermin Dueñas Primary Care Unavailable Fermin Dueñas Referring Unavailable Larissa Oconnor Attending Unavailable Allergies Allergy Classification Reported Allergen(s) Allergy Type Date of Onset Reaction(s) Facility (1 source) [facility]; Translations: [ANIMALS] allergy to substance 9 [facility] Work Phone: (4 sources) Latex; Translations: [LATEX] allergy to substance 9 [facility] Work Phone: (1 source) Penicillin Drug Allergy 9 [facility] Work Phone: (2 sources) Penicillins Allergy to substance 5 [facility] (1 source) Penicillins Drug allergy (disorder) 5 [facility] Repository Medications Current Medications Medication Drug Class(es) [...] Aptim aon 07-18-2025 ADEQ Comment Normal . [facility] Comment on above: Order Comment: Speci men Comment: [id number] Specimen Comment: No. of containers..01 ThinPrep Vial Result Comment: Sati sfactory for evaluation. Endocervical and/or squamous metaplastic cells (endocervical component) are present. Performed By: #### L 7400.0357 #### [facility] [address] [place], [address] COMM . Normal . [facility] Comment on above: Order Comment: Speci men Comment: [id number] Specimen Comment: No. of containers..01 ThinPrep Vial Performed By: #### L 7400.0357 #### [facility] [address] [place], [address] COMMENT Comment Normal . [facility] Comment on above: Order Comment: Speci men Comment: [id number] Specimen Comment: No. of containers..01 ThinPrep Vial Result Comment: This liquid based ThinPrep(R) pap test was screened with the use of an image guided system. Performed By: #### L 7400.0357 #### [facility] [address] [place], [address] DIAG Comment Normal . [facility] Comment on above: Order Comment: Speci men Comment: [id number] Specimen Comment: No. of containers..01 ThinPrep Vial Result Comment: NEGA TIVE FOR INTRAEPITHELIAL LESION OR MALIGNANCY. Performed By: #### L 7400.0357 #### [facility] [address] [place], [address] HPV RFLX Comment Normal . [facility] Comment on above: Order Comment: Speci men Comment: [id number] Specimen Comment: No. of containers..01 ThinPrep Vial Result Comment: The HPV DNA reflex criteria were not met with this specimen result therefore, no HPV testing was performed. Performed at: [address] [id number] [employer]: Samantha James MD, Phone: [phone] Performed By: #### L 7400.0357 #### [facility] [address] [place], [address] PAPSMR Comment Normal . [facility] Comment on above: Order Comment: Speci men Comment: [id number] Specimen Comment: No. of containers..01 ThinPrep Vial Result Comment: The Pap smear is a screening test designed to aid in the detection of premalignant and malignant conditions of the uterine cervix. It is not a diagnostic procedure and should not be used as the sole means of detecting cervical cancer. Both false-positive and false-negative reports do occur. Performed By: #### L 7400.0357 #### [facility] [address] [place], [place], [address] PERFORM Comment Normal . [facility] Comment on above: Order Comment: Speci men Comment: [id number] Specimen Comment: No. of containers..01 ThinPrep Vial Result Comment: Sarita Frye Sheet Taker (ASCP) Performed By: #### L 7400.0357 #### [facility] [address] [place], [address] Cervical or vagninal specime n microscopic examination by cytology stain (reported asOrdered By: Larissa Oconnor on 07-15-2025 Cytology report Cyto stain Doc (Cvx/Vag) Comment . [facility] Comment on above: The Pap smear is a s creening test designed to aid in thedetection of premalignant and malignant conditions of theuterine cervix. It is not a diagnostic procedure andshould not be used as the sole means of detecting cervicalcancer. Both false-positive and false-negative reports dooccur. Laboratory - CytologyOrdered By: Larissa Oconnor on 07-15-2025 Sheet Taker Cyto stain Nom (Cvx/Vag) [ID] Comment . [facility] Comment on above: Les calvert Sheet Taker (ASCP) Laboratory - Miscellaneous t estsOrdered By: Larissa Oconnor on 07-15-2025 Service comment (Unsp spec) [Interp] . . [facility] No Panel InformationOrdered By: Larissa Oconnor on 07-15-2025 Pap Smear Specimen Adequacy Comment . [facility] Comment on above: Satisfactory for richard luation. Endocervical and/or squamous metaplasticcells (endocervical component) are present. 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 Is patient in pain?: No [...] animals: No history of recent travel: [place] ([place]) out of state: Yes out of country: No sexually active: Yes Smoking Status: Never smoker alcohol intake: never substance use type: does not use well-balanced diet: daily or most days caffeine: No eating out: 1-3 times/week during the past year weight has: remained stable what type of physical activity do you participate in: walking and running frequency: daily arlen/voodoo: Cheondoism seatbelt use: always do you feel safe [...] Unknown Richard 37 live - full term [place] [facility] HPI Encounter for routine gynecological [...] nose normal (more content not included)... Normal [facility] - Chemistry and C hemistry - challengeOrdered By: Poppy Barragan on 05-16-2023 Free T4 [Mass/Vol] 0.88 ng/dL 0.76-1.46 [facility] No Panel InformationOrdered By: Poppy Barragan on 05-16-2023 Follicle Stimulating Hormone 8.8 mIU/mL [facility] Comment on above: NORMAL REFERENCE RAN GES FEMALE FOLLICULAR 2.3 - 12.6 mIU/mL MID-CYCLE PEAK 5.2 - 17.5 mIU/mL LUTEAL 1.7 - 12.9 mIU/mL POST-MENOPAUSAL ON MHT 5.9 - 72.8 mIU/mL NOT ON MHT 12.7 - 132.2 mlU/mL MALE 0.7 - 10.8 mIU/mL Luteinizing Hormone 55.5 mIU/mL [facility] Comment on above: NORMAL REFERENCE RAN GES FEMALE FOLLICULAR 1.9 - 26.2 mIU/mL MID-CYCLE PEAK 22.8 - 76.1 mIU/mL LUTEAL 0.6 - 16.6 mIU/mL POST-MENOPAUSAL ON MHT 1.1 - 52.4 mIU/mL NOT ON MHT 8.6 - 61.8 mIU/mL MALE 1.2 - 10.6 mIU/mL Thyroid Stimulating Hormone (TSH) 2.59 uIU/mL 0.358-3.74 [facility] Serum or plasma estradiol (E 2) measurement (mass/volume)Ordered By: Poppy Barragan on 05-16-2023 E2 [Mass/Vol] 205.3 pg/mL [facility] Comment on above: NORMAL REFERENCE RAN [...] Barragan on 05-16-2023 Prolactin [Mass/Vol] 19.9 ng/mL [facility] Comment on above: NORMAL REFERENCE RAN GES FEMALE NON- 2.2 - 30.3 ng/mL 8.1 - 347.6 ng/mL POST-MENOPAUSAL 0.7 - 31.5 ng/mL MALE 2.5 - 17.4 ng/mL Absolute lymphocyte countOrd ered By: Poppy Barragan on 05-12-2023 Lymphocytes Auto (Unsp spec) [#/Vol] 1.48 10*3/uL 0.83-4.51 [facility] Basophil percentageOrdered B y: Poppy Barragan on 05-12-2023 Basophils/100 WBC (Bld) 0.8 % 0-1 [facility] Eosinophils/100 WBC (Bld) 1.7 % 0-5 [facility] Neutrophils (Bld) [#/Vol] 2.9 10*3/uL 2.0-7.7 [facility] Neutrophils/100 WBC (Bld) 60.7 % 47-70 [facility] WBC (Bld) [#/Vol] 4.8 10*3/uL 4.4-11.0 [facility] Blood erythrocytes count (nu mber/volume)Ordered By: Poppy Barragan on 05-12-2023 RBC (Bld) [#/Vol] 4.23 10*6/uL 4.2-5.4 [facility] Blood hemoglobin measurement (mass/volume)Ordered By: Poppy Barragan on 05-12-2023 Hemoglobin (Bld) [Mass/Vol] 12.7 g/dL 12.0-15.0 [facility] Blood lymphocytes/100 leukoc ytesOrdered By: Poppy Barragan on 05-12-2023 Lymphocytes/100 WBC (Bld) 30.8 % 19-41 [facility] Blood monocytes/100 leukocyt esOrdered By: oPppy Barragan on 05-12-2023 Monocytes/100 WBC (Bld) 5.8 % 0-10 [facility] Blood platelet mean volumeOr dered By: Poppy Barragan on 05-12-2023 Platelet mean volume (Bld) [Entitic vol] 10.4 fL 6.2-12.0 [facility] Determination of erythrocyte mean corpuscular volume (MCV)Ordered By: Poppy Barragan on 05-12-2023 MCV (RBC) [Entitic vol] 92.4 fL 81-99 [facility] Hematocrit Auto (Bld) [Volum e fraction]Ordered By: Poppy Barragan on 05-12-2023 Hematocrit (Bld) [Volume fraction] 39.1 % 37-47 [facility] - Hematology and Cell countsOrdered By: Poppy Barragan on 05-12-2023 Erythrocyte distribution width (RBC) [Entitic vol] 43.5 fL 35.1-43.9 [facility] Erythrocyte distribution width (RBC) [Ratio] 12.7 % 11.6-14.6 [facility] Immature granulocytes/100 WBC (Bld) 0.200 % 0.0-0.9 [facility] Comment on above: IG% - Immature Granu locytes (promyelocytes, myelocytes and metamyelocytes) > 1% indicates that a LEFT SHIFT is Present. MCH (RBC) [Entitic mass] 30.0 pg 27.0-32.0 [facility] Nucleated RBC/100 WBC (Bld) [Ratio] 0 % 0-5 [facility] MCHC Auto (RBC) [Mass/Vol]Or dered By: Poppy Barragan on 05-12-2023 MCHC (RBC) [Mass/Vol] 32.5 g/dL 32-36 [facility] Platelets bldOrdered By: Teresa Barragan on 05-12-2023 Platelets (Bld) [#/Vol] 193 10*3/uL 150-450 [facility] NM LYMPHOSCINTIGRAPHYon 11-0 Lymphocytes (Bld) [#/Vol] ORIGINAL [...] Date: 09/05/2019 10:25:16 AM Ordering Provider:Deepak Brock [facility] ([place]) Clinical Summary: HMSPatient IDon 08-20-2019 [facility] Work Phone: Clinical Lists Update: Prelo ad Extendedon 08-17-2019 Tobacco smoking status NHIS Tobacco smoking status NHIS [facility] Work Phone: Clinical Summary: Scanned Hi story Summaryon 08-17-2019 Data entered by patient exercise frequency 5 days per week [facility] Work Phone: Data entered by patient exercise type walking, jogging [facility] Work Phone: data entered by patient, alcohol (ethanol or ETOH) use No [facility] Work Phone: Data entered by patient, allergy list PenicillinAnimalsLatex Cry stal [facility] Work Phone: data entered by patient, drug (of abuse) use No [facility] Work Phone: data entered by patient, Employer Name unemployed [facility] Work Phone: data entered by patient, exercise history Yes [facility] Work Phone: Data entered by patient, history of past surgeries section [facility] Work Phone: data entered by patient, past medical history AnemiaMelanoma [facility] Work Phone: data entered by patient, social history, current smoker never smoker [facility] Work Phone: data entered by patient, social history, marital status [facility] Work Phone: father of patient is alive or Alive [facility] Work Phone: Housing Type: apartment, house, long term, trailer, none house [facility] Work Phone: housing unit size (asthma environmental history, housing) (from single family to don't know) 2 floors [facility] Work Phone: medical history of patient's brother(s) Alcoholism [facility] Work Phone: mother of patient is alive or Alive [facility] Work Phone: Number of dependent children Yes [facility] Work Phone: Vital Signs Date Time Vital Sign Value Performing Clinician Facility 07-15-2025 08:19-0400 Body height 162.[address] Fermin Dueñas MD Work Phone: [facility] 07-15-2025 08:19-0400 Body mass index (BMI) [Ratio] 24.7 kg/m2 Dr. Fermin Dueñas MD Work Phone: [facility] 07-15-2025 08:19-0400 Body weight 65.[address] Fermin Dueñas MD Work Phone: [facility] 07-15-2025 08:19-0400 Diastolic blood pressure 69 mm[Hg] Dr. Fermin Dueñas MD Work Phone: [facility] 07-15-2025 08:19-0400 Systolic blood pressure 105 mm[Hg] Dr. Fermin Dueñas MD Work Phone: [facility] NEGATED: Highlighted [id number] 09:07-0400 BMI (Body Mass Index) 23.72 kg/m2 Paty Ordoñez RN [facility] Work Phone: NEGATED: Highlighted [id number] 09:07-0400 Body weight 64.41 kg Paty Ordoñez RN [facility] Work Phone: NEGATED: Highlighted [id number] 09:07-0400 Body weight 65 kg Paty Ordoñez RN [facility] Work Phone: NEGATED: Highlighted [id number] 09:07-0400 BP Diastolic 72 mm[Hg] Paty Ordoñez RN [facility] Work Phone: NEGATED: Highlighted [id number] 09:07-0400 BP Systolic 111 mm[Hg] Paty Ordoñez RN [facility] Work Phone: NEGATED: Highlighted [id number] 09:07-0400 Height 165.1 cm Paty Ordoñez RN [facility] Work Phone: NEGATED: Highlighted [id number] 09:07-0400 Height 165 cm Paty Ordoñez RN [facility] Work Phone: NEGATED: Highlighted [id number] 09:07-0400 Pulse (Heart Rate) 68 /min Paty Ordoñez RN [facility] Work Phone: Encounters Encounter Date Encounter Type Care Provider Facility Start: 07-15-2025 End: 07-15-[address] Fermin Dueñas MD Work Phone: -Laboratory Specimen Start: 07-15-2025 End: 07-15-2025 Patient encounter procedure Larissa Oconnor LUBRICATION TECHNICIAN-C -Laboratory Specimen Work Phone: Start: 07-15-2025 Encounter for gynecological examination (general) (routine) without abnormal findings Larissa Oconnor [facility] Start: 07-15-2025 End: 07-15-2025 Patient encounter procedure Larissa Oconnor LUBRICATION TECHNICIAN-C -[facility] @ Start: 07-15-2025 End: 07-15-[address] Fermin Dueñas MD Work Phone: -[facility] @ Start: 07-15-2025 End: 07-15-2025 ambulatory Larissa Oconnor Facility:[facility] Start: 05-16-2023 End: 05-16-2023 ambulatory [facility] Work Phone: Start: 05-16-2023 End: 05-16-2023 Patient encounter procedure [facility]-Laboratory, [place] [facility] Off Start: 05-12-2023 End: 05-12-2023 ambulatory [facility] Work Phone: Start: 05-12-2023 End: 05-12-2023 Patient encounter procedure [facility]atory, [place] [employer] pol[employer] Off Start: 02-16-2022 End: 02-16-2022 Patient encounter procedure [facility]-Outpatient Breast Imaging Start: 08-20-2019 End: 08-20-2019 Patient encounter procedure Tahir Brock MD Work Phone: [facility] Work Phone: Procedures Date Procedure Procedure Detail [...] therefore, no HPV testing was performed.Performed at: [address] [place] [id number] Director: Samantha James MD, Phone: [phone] Start: 02-16-2022 Ultrasonography of breast Start: 02-16-2022 [...] 08-15-2025 MG Breast - bilatera l Screening [facility] Start: 08-20-2019 End: 08-20-2019 Appointment Appointment [facility] Work Phone: MG Breast - bilatera l Screening [facility] Microscopic observat ion [Identifier] in Cervix by Cyto stain.thin prep [facility] Payers Date Payer Category Payer Self-pay [id number] 2009 Unknown [id number] 2009 Unknown [id number] Unknown [id number] Unknown [id number] Social History Date Type Detail Facility Start: 08-20-2019 End: 08-20-2019 Assertion Unknown if ever smoked [facility] Work Phone: Start: 1985 Sex Assigned At Female [facility] Start: 07-15-2025 Tobacco smoking status NHIS Never smoked tobacco (finding) [facility] Gender Identity Identifies as fe male gender (finding) [facility] Sexual Orientation Heterosexual (finding) [facility] Progress note 07-15-2025 Note Date & Type Note Facility 07-15-2025 Progress note [facility] Evaluation note Note Date & Type Note Facility Evaluation note No assessment information availa ble [facility] Work Phone: Progress note Note Date & Type Note Facility Progress note Note Date/Time July 15, 2025 8:49am [facility] [address], [address] [place] [address] OFFICE VISIT Date of Service: 07/15/25 MR#: [id number] Acct: [id number] Name: KAYLEY WESTON Rep #: [id number] : 1985 Provider: SAQIB Oconnor Age/Sex: 40/F Location: [facility].W Status: Signed Intake Vital Signs 07/15/25 08:19 Height 5 ft 4 in Weight: 144 lb BMI 24.7 BP 105/69 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 Is patient in pain?: No [...] animals: No history of recent travel: [place] ([place]) out of state: Yes out of country: No sexually active: Yes Smoking Status: Never smoker alcohol intake: never substance use type: does not use well-balanced diet: daily or most days caffeine: No eating out: 1-3 times/week during the past year weight has: remained stable what type of physical activity do you participate in: walking and running frequency: daily arlen/voodoo: Cheondoism seatbelt use: always do you feel safe [...] Unknown Jung 39 live - full term [facility] Unknown Richard 38 live - full term [facility] HPI Encounter for routine gynecological examination Details: [...] 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 Call office sooner with questions or concerns. Orders: Orders SCRN MAMM (CAD)W/PEÑA BILAT Today Z12.39 - Encounter for other screening for malignant neoplasm of breast PAP IG w/Reflex HR HPV Aptima Today Z12.4 - Encounter for screening for malignant neoplasm of cervix 07/15/25 [id number] <Electronically signed by Larissa CERRATO> Date _ Larissa CERRATO Cosigner Signature: Date (if applicable) CC: ~ [facility] Work Phone: Reason for referral (narrative) Note Date & Type Note Facility Reason for referral (narrative) No reason for referral information available [facility] Work Phone: Summary Purpose Family [...] unspecified breast 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 [facility] [facility]. provides no warranty or guarantee of the accuracy or completeness of information in this document.
== END | disposition home or self-care (01) ==
PROVIDERS: PCP Nurse Practitioner Family; Referring Provider Nurse Practitioner Family; Visit Provider Nurse Practitioner Family
DX: Z12.31 Encounter for screening mammogram for malignant neoplasm of breast (principal)
CPT/HCPCS: 77063; 77067